=== PATIENT | male | born 1985 | race Two or more races ===

== ENCOUNTER 2016-10-04 15:13 | Emergency (ER) | payer OTHER ==
[~2016-10-04] VITALS: Ht 152.4 cm; Wt 57.6 kg
[2016-10-04 15:52] VITALS: BP 116/63
[2016-10-04] MEDS ORDERED: LIDOCAINE 1% HCL (LOCAL ANESTH.) INJ 20ML MDV IJ ONE (16:15)
== END 2016-10-04 16:31 | disposition home or self-care (01) ==
LOC: ER 15:13
DX: S01.81XA Laceration without foreign body of other part of head, initial encounter (principal); W22.8XXA Striking against or struck by other objects, initial encounter; Y93.89 Activity, other specified; Y99.0 Civilian activity done for income or pay; Y92.69 Other specified industrial and construction area as the place of occurrence of the external cause
CPT/HCPCS: 12013; 99283; J2001